=== PATIENT | female | born 1960 | race Caucasian/White ===

== ENCOUNTER → 2017-01-08 | Outpatient (CLI) | payer OTHER ==
--- NOTE | ~2017-01-08 | US24 ---
[facility] A Service [facility] RADIOLOGY TEXT RESULTS PATIENT: BREANNA QUISPE LOCATION: [facility] : 62 UNIT #: [id number] AGE: [address]: Pool Anna MD SEX: F ORDER DR: [id number] [facility] [address] [place], [place] [address] [id number] O MR#: [id number] Acc #: [id number] NAME: BREANNA QUISPE : 1960 SEX: F STUDY DATE/TIME: 01/08/2017 8:56 UNIT: [facility] ROOM: STUDY DESCRIPTION: US Breast Unilateral Attending Physician: Pool Anna M.D. Referring Physician: Pool Anna M.D. Ordering Physician: Pool Anna M.D. Primary Care Physician: Amanda Escalante M.D. MEDICAL IMAGING REPORT This report is preliminary unless electronic signature is present EXAM Right breast ultrasound 01/08 INDICATION History of right breast bloody nipple discharge. Previous history of surgery for papilloma resection. FINDINGS The sonographic evaluation is performed with subareolar right breast in multiple planes. Comparison made with mammogram from 11/22/2016. Ultrasound is within normal limits. No significant duct ectasia is seen. There is no evidence of a subareolar mass or intraductal papilloma. Continued clinical followup is recommended at this time. Findings were discussed with the patient at the time of her examination today. IMPRESSION Negative subareolar right breast ultrasound. Continued clinical followup of breast discharge recommended. BIRADS: 1 Negative Dictated by... Faizan Mora Jr., M.D. THIS IS AN ELECTRONICALLY VERIFIED REPORT Faizan Mora Jr., M.D. at 01/08/2017 12:30 PM MILYK/christal TD: 01/08/2017 11:48 JOB #: [id number] MEDICAL IMAGING REPORT [facility] A Service of [facility] RADIOLOGY TEXT RESULTS PATIENT: BREANNA QUISPE LOCATION: [facility] #: [id number] : 62 UNIT #: [id number] AGE: [address]: Pool Anna MD SEX: F ORDER DR: COPY
== END | disposition home or self-care (01) ==
LOC: CMAM 08:40
DX: N64.52 Nipple discharge (principal)
CPT/HCPCS: 76641